=== PATIENT | female | born 1955 | race Caucasian/White ===

== ENCOUNTER 2021-10-18 14:28 | Outpatient (CLI) | payer OTHER | END 2021-10-18 14:29 | disposition home or self-care (01) | LOC: CTENTCT 14:28 | PROVIDERS: ATTEND Otolaryngology Plastic Surgery within the Head & Neck | DX: J01.91 Acute recurrent sinusitis, unspecified (principal) | CPT/HCPCS: 70486 ==

== ENCOUNTER 2022-01-09 07:40 | Day surgery (SDC) | payer MEDICARE, OTHER ==
[2022-01-09 02:54] VITALS: BMI 34.4
[2022-01-09] MEDS ORDERED: Oxymetazoline HCl 0.05% (30 ML BOT) ONE ×2 (08:12→10:05)
[2022-01-09] MEDS ORDERED: Midazolam HCl 2 mg/2 ml Vial ONE (08:50)
[2022-01-09] MEDS ORDERED: fentaNYL PF 100 MCG/2 ML SYRINGE ONE ×2 (08:50→10:10)
[2022-01-09 09:58] LABS: Hemoglobin 15.3 g/dL (12.0-16.0)
[2022-01-09] MEDS ORDERED: EPINEPHrine 1 MG/ML AMP ONE (10:05)
[2022-01-09] MEDS ORDERED: Lidocaine 1% (PF) 30 ML VIAL ONE (10:05)
[2022-01-09] MEDS ORDERED: Bacitracin Zinc Ointment 30 gm TUBE ONE (10:05)
[2022-01-09 10:15] LABS: Anion Gap 13 mmol/L (10-20); BUN (Urea Nitrogen) 18 mg/dL (9.8-20.1); Calc. Creatinine Clearance 85 mL/min (70-130); Calcium 9.9 mg/dL (7.8-10.44); Carbon Dioxide 27 mmol/L (23-31); Chloride 107 mmol/L (98-107); Estimated GFR 59; Glucose 100 mg/dL (80-115); Potassium 3.8 mmol/L (3.5-5.1); Sodium 143 mmol/L (136-145)
[2022-01-09] MEDS ORDERED: Dexamethasone 20 MG/5 ML VIAL ONE (10:20)
[2022-01-09] MEDS ORDERED: Glycopyrrolate 0.2 MG/ML 5 ML SYRINGE ONE (10:20)
[2022-01-09] MEDS ORDERED: PHENYLEPHRINE-NS 100 MCG/ML 10 ML SYRINGE ONE (10:20)
[2022-01-09] MEDS ORDERED: Ondansetron PF 4 MG/2 ML Vial ONE (10:20)
[2022-01-09] MEDS ORDERED: Labetalol HCl 100 MG/20 ML VIAL ONE (10:20)
[2022-01-09] MEDS ORDERED: NEOSTIGMINE 3 MG/3 ML SYR 3 MG/3 ML SYRINGE ONE (10:20)
[2022-01-09] MEDS ORDERED: Rocuronium Bromide 10 MG/ML (10ML VIAL) ONE (10:20)
[2022-01-09] MEDS ORDERED: PROPOFOL 200 MG/20 ML VIAL ONE (10:20)
[2022-01-09] MEDS ORDERED: methylPREDNISolone Acetate 40 mg/ml Vial ONE (10:31)
[2022-01-09] MEDS ORDERED: FENTANYL 50 MCG/ML 1 ML VIAL ONE (11:19)
[2022-01-09] MEDS ORDERED: Hydrocodone-Acetamin 15 ML UDCUP ONE (12:45)
== END 2022-01-09 14:14 | disposition home or self-care (01) ==
LOC: SDC 07:40
PROVIDERS: ATTEND Otolaryngology Plastic Surgery within the Head & Neck
PROC: 0CBT8ZZ Excision of Right Vocal Cord, Via Natural or Artificial Opening Endoscopic (ICD-10-PCS; principal; 2022-01-09)
PROC: 8E09XBZ Computer Assisted Procedure of Head and Neck Region (ICD-10-PCS; 2022-01-09)
PROC: 09BT8ZZ Excision of Left Frontal Sinus, Via Natural or Artificial Opening Endoscopic (ICD-10-PCS; 2022-01-09)
PROC: 09BS8ZZ Excision of Right Frontal Sinus, Via Natural or Artificial Opening Endoscopic (ICD-10-PCS; 2022-01-09)
DX: J32.1 Chronic frontal sinusitis (principal); J30.89 Other allergic rhinitis; B48.8 Other specified mycoses; J33.8 Other polyp of sinus; J38.3 Other diseases of vocal cords; J34.3 Hypertrophy of nasal turbinates; F17.210 Nicotine dependence, cigarettes, uncomplicated; Z79.899 Other long term (current) drug therapy; Z88.5 Allergy status to narcotic agent
CPT/HCPCS: 31276; 31541; 61782; 80048; 85014; 85018; 93005; C2625; J3010; 88305; 93010; J0171; J1030; J1100; J2001; J2250; J2405; J2704